=== PATIENT | female | born 1975 | race Caucasian/White ===

== ENCOUNTER 2025-03-07 16:59 | Emergency (ER) | payer OTHER ==
[~2025-03-07] VITALS: Ht 167.6 cm; Wt 70.0 kg
[2025-03-07 17:02] VITALS: O2SAT 98
[2025-03-07 18:24] LABS: BASOPHILS % 0.6 % (0.0-2.0); EOSINOPHILS % 1.6 % (0.0-5.0); HEMATOCRIT. 33.5 % (36.0-48.0); HEMOGLOBIN. 11.3 g/dL (12.0-16.0); LYMPHOCYTES % 10.9 % (20.0-50.0); MEAN PLATELET VOLUME 6.7 fl (7.4-10.4); MONOCYTES % 12.0 % (2.0-8.0); NEUTROPHILS % 74.9 % (40.0-76.0); PLATELET 298 x1000/uL (130-400); RED BLOOD CELL COUNT 4.14 mill/uL (4.2-5.4); RED CELL DISTRIBUTION WIDTH 14.2 % (11.6-14.6)
[2025-03-07 18:32] LABS: CREATININE 0.6 mg/dL (0.6-1.0); TROPONIN I HIGH SENSITIVITY < 4 ng/L (3.0-34)
[2025-03-07 18:33] LABS: UREA NITROGEN BLOOD 13 mg/dL (9-23)
[2025-03-07 18:34] LABS: ASPARTATE AMINOTRANSFERASE 21 IU/L (<34)
[2025-03-07 18:35] LABS: BILIRUBIN DIRECT 0.1 mg/dL (<=3.0); BILIRUBIN TOTAL 0.3 mg/dL (0.1-1.0); PROTEIN TOTAL 7.1 g/dL (6.0-8.3)
[2025-03-07 19:05] VITALS: TEMP 36.8
[2025-03-07] MEDS: ASPIRIN 81MG TABLET PO ONE (21:09)
[2025-03-07] MEDS: SODIUM CHLORIDE 0.9% 1,000 ML IV ONE (21:10)
[2025-03-07] MEDS: CLOPIDOGREL 75MG TABLET PO ONE (21:10)
[2025-03-07] MEDS: ATORVASTATIN CALCIUM 40MG TABLET PO SCH (21:25)
[2025-03-07 21:53] LABS: HCG SCREEN NEGATIVE
[2025-03-07] MEDS: IOHEXOL-350 100 ML BOTTLE ONE (22:02)
[2025-03-07 23:34] VITALS: BP 160/92; PULSE 83; RESP 21; O2SAT 100
== END 2025-03-07 23:40 | disposition short-term general hospital (02) ==
LOC: ER 16:59 → EDBEDREQTM 20:59 → EDBEDREQ 20:59 → ER 23:40 → CMPBEDREQ 03-08 19:21
DX: R07.89 Other chest pain (principal); I10 Essential (primary) hypertension; E11.9 Type 2 diabetes mellitus without complications; I25.2 Old myocardial infarction; R06.02 Shortness of breath; Z79.899 Other long term (current) drug therapy; Z95.5 Presence of coronary angioplasty implant and graft
CPT/HCPCS: 80076; 80048; 84703; 83880; 83690; 83735; 85025; 85379; 84484; 36415; 71045; 71275; 70450; 93005; 96360; 99285; Q9967; Z7610 ×2; J7030; A4606